=== PATIENT | female | born 1945 | race Caucasian/White ===

== ENCOUNTER → 2025-04-29 15:14 | Outpatient (REF) | payer BC, SELFPAY | LOC: RAD 15:14 | PROVIDERS: ATTENDING PHYSICIAN Family Medicine | DX: R74.01 Elevation of levels of liver transaminase levels (principal); R19.00 Intra-abdominal and pelvic swelling, mass and lump, unspecified site; C50.912 Malignant neoplasm of unspecified site of left female breast; R63.4 Abnormal weight loss; R19.4 Change in bowel habit | CPT/HCPCS: 74177; Q9967 ==

== ENCOUNTER → 2025-05-24 16:18 | Outpatient (REF) | payer BC, OTHER, SELFPAY | LOC: RCS 16:18 | PROVIDERS: ATTENDING PHYSICIAN Internal Medicine; FAMILY PHYSICIAN Family Medicine | DX: C78.7 Secondary malignant neoplasm of liver and intrahepatic bile duct (principal); C79.51 Secondary malignant neoplasm of bone; C18.7 Malignant neoplasm of sigmoid colon; C50.112 Malignant neoplasm of central portion of left female breast; Z17.0 Estrogen receptor positive status [ER+]; R63.4 Abnormal weight loss; R79.89 Other specified abnormal findings of blood chemistry | CPT/HCPCS: 93005 ==

== ENCOUNTER 2025-05-30 11:57 | Emergency (ER) | payer BC, OTHER, SELFPAY ==
[2025-05-30 12:03] VITALS: BP 119/75
[2025-05-30 12:07] VITALS: BP 119/75
--- NOTE | 2025-05-30 12:15 | ED.GENMED ---
History of Present Illness
General
Chief Complaint: Heart Rate Problem
Time Seen by Provider: 05/30/25 12:14
History of Present Illness
History of Present Illness:
FOCUSED PAST MEDICAL HISTORY
- Liver cancer diagnosed 2024
REVIEW OF OLD RECORDS
- I reviewed some records from [place] [facility] on the patient's records that she brought in and on the daughters device
Note:
CHIEF COMPLAINT(S)
High heart rate and general weakness.
HISTORY OF PRESENT ILLNESS
The patient is a 79-year-old female with a recent diagnosis of liver cancer, who was previously treated for breast cancer with ER-positive readings. The patient has been receiving care at [facility]. She presented to the ER with an
extremely high heart rate noted by a healthcare nurse at home, who measured a heart rate of 150 beats per minute. The nurse advised calling 911. The patient reported significant weakness and appears somewhat dehydrated, having consumed only a small
amount of water in the last 24 hours, without any food intake.
The patients medical history includes a recent hospitalization at [facility], from which she was discharged on March 28 after receiving IV fluids for dehydration and a blood transfusion to address a low hemoglobin level, which improved to 10.1
g/dL. The total bilirubin level at discharge was reported to be 4 mg/dL. She has an upcoming appointment with her oncologist, Dr. Aquino, and plans on continuing care with local providers rather than returning to [facility] for future hospital visits
unless necessary.
PAST MEDICAL AND SURGICAL HISTORY
The patient has a history of breast cancer treated with lumpectomy at [facility].
EXTERNAL RECORDS REVIEWED
The patient has discharge paperwork from a recent hospital stay at [facility], and she has screenshots of lab results from March 28. These records indicate improved hemoglobin levels post-transfusion.
CHRONIC MEDICAL CONDITIONS SIGNIFICANTLY AFFECTING CARE
- Liver cancer
- Breast cancer (ER-positive)
SOCIAL HISTORY
The patient reports previous medical procedures related to breast cancer treatment and expresses a preference for continuing oncology care locally rather than at [facility] in the future.
REVIEW OF SYSTEMS
- Cardiovascular: Elevated heart rate found by visiting nurse but patient does not necessarily feel palpitations
- Gastrointestinal: Dehydration, limited oral intake
- General: Weakness
PHYSICAL EXAM
General: Appears generally weak and debilitated, cachectic
Skin: Dry oral mucosa
Cardiovascular: Heart rate currently at 90; port anterior chest wall, regular rhythm
Gastrointestinal: Soft abdomen
Extremities: No edema
PROBLEM LIST
Acute:
- Elevated heart rate
- Dehydration
Chronic:
- Liver cancer
- Breast cancer (ER-positive)
PLAN
- Administer IV fluids to address dehydration.
- Gather more comprehensive lab data, if possible, from the patients medical portal.
- Monitor and adjust treatment based on patients response.
DIFFERENTIAL DIAGNOSIS
The Differential Diagnosis includes, in no particular order and is not limited to:
1. Dehydration
2. Anemia
3. Cardiac arrhythmia
4. Infection
5. Hyperthyroidism
6. Electrolyte imbalance
7. Medication side effects
8. Anxiety
9. Pulmonary embolism
10. Acute coronary syndrome
EKG
- Sinus 93, left axis deviation, poor R wave progression
LABS
- White count 9.3, hemoglobin 10.2, bicarb 20, total bili 4.4, AST 371, alk phos 691, TSH 6.85�similar numbers in comparison to review of records from [facility]
UPDATE
-SUMMARY OF ENCOUNTER
The patient, a 79-year-old female with a recent diagnosis of liver cancer, presented to the emergency department with symptoms of a high heart rate (found by visiting nurse of around 150) and general weakness. The patient had previously been
hospitalized at [facility] where she received IV fluids and a blood transfusion for dehydration and low hemoglobin. She did not like the care there. Upon evaluation, it was determined that her weakness and elevated heart rate were
likely related to dehydration and poor oral intake. IV fluids were administered in the emergency department, and she reported some improvement in symptoms.
DISPOSITION
The patient is to be discharged with instructions to follow up with her oncologist at [facility] but plans to receive more of her care locally at [place] going forward.
ASSESSMENT
The patients elevated heart rate and weakness were likely due to dehydration and reduced oral intake, secondary to her recent hospitalization and ongoing medical conditions, including liver cancer and history of breast cancer.
PLAN
Continue with hydration and monitor oral intake. Follow up with oncology at [facility], with consideration for more frequent local care at [facility].
INDEPENDENT REVIEW OF LABS AND INTERPRETATION OF TESTS
My independent review of recent labs from [facility] indicates stable hemoglobin levels since the last transfusion.
FOLLOW-UP INSTRUCTIONS
The patient is instructed to follow up with her oncologist at [facility] and consider scheduling future appointments with local providers at [place].
MEDICAL DECISION MAKING
Number and Complexity of Problems Addressed: Chronic conditions affecting care include liver cancer and a history of ER-positive breast cancer. The differential diagnosis includes dehydration, anemia, cardiac arrhythmia, and electrolyte imbalance.
Data:
Category 1: External records reviewed include recent discharge paperwork and lab results from [facility].
Category 3: Care plans discussed with oncology for follow-up and continuation of treatment.
Risk: Consideration of Admission/Observation: Escalation of care including admission/observation was considered given the complexity and risk of the patients presenting complaint and underlying comorbidities. However, ultimately I feel the patient
is safe for outpatient management with close follow-up. Reasoning: Work-up reassuring, symptoms well-controlled upon reevaluation, vitals stable, patient agreeable with discharge, and reliable for follow-up.
DIAGNOSIS
1. Dehydration (ICD-10: E86.0)
2. Liver cancer (ICD-10: C22.9)
3. History of breast cancer (ER-positive) (ICD-10: Z85.3)
Past History
Past History
ED Past Medical History: Arrthythmia (PVCs), Cancer and Other (Arthritis)
ED Past Surgical History: Orthopedic; Negative Cardiac
Social History
Tobacco: Non-smoker
Alcohol: Occasional
Drug: None
Personal:
Living: with family
Employment: Employed
Family History
Family History: Other (Noncontributory)
Phy Exam
Physical Exam
Physical Exam:
See HPI
Course
Orders/Labs/Results
Orders:
Orders
05/30/25 11:58
Electrocardiogram (*1) Urgent
Reason for Study: Tachycardia
EKG- Treatment ONCE
05/30/25 12:13
Complete Blood Count/With Diff Urgent
Comprehensive Metabolic Panel Urgent
TSH Urgent
05/30/25 12:28
0.9% Sodium Chloride 1000 ml [Nss] 1,000 ml IV BOLUS
Abnormal Lab Results
05/30/25
12:13
RBC 3.06 L 10^6/uL
(4.20-5.40)
Hgb 10.2 L g/dL
(12.0-16.0)
Hct 32.9 L %
(37.0-47.0)
MCV 107.5 H fL
(81.0-99.0)
MCH 33.3 H pg
(27.0-31.0)
MCHC 31.0 L g/dL
(33.0-37.0)
RDW 20.7 H %
(11.5-14.5)
Plt Count 108 L 10^3/uL
(130-400)
Abs Immat Gran (auto) 0.4 H 10^3/uL
(0-0.05)
Absolute Monos (auto) 0.7 H 10^3/uL
(0.1-0.6)
Immature Gran % 4.3 H %
(0-0.5)
Lymphocytes % 19.5 L %
(20.5-51.1)
Sodium 132 L mmol/L
(135-145)
Carbon Dioxide 20 L mmol/L
(22-30)
BUN 23 H mg/dl
(7-17)
Glucose 130 H mg/dl
(70-99)
Total Bilirubin 4.4 H mg/dl
(0.2-1.3)
AST 371 H U/L
(14-36)
ALT 50 H U/L
(0-35)
Alkaline Phosphatase 691 H U/L
(38-126)
Albumin 2.9 L g/dl
(3.5-5.0)
TSH 6.85 H uIU/ml
(0.47-4.68)
05/30/25 12:13
05/30/25 12:13
Vital Signs
Initial and Last Documented VS:
Initial Vital Signs
Pulse Resp
94 17
05/30/25 12:02 05/30/25 12:02
Last Documented Vital Signs
Temp Pulse Resp BP Pulse Ox
36.6 C 78 22 127/72 96
05/30/25 12:03 05/30/25 14:00 05/30/25 14:00 05/30/25 14:00 05/30/25 14:00
*Pulse Oximetry
SaO2: 98
Oxygen Mode of Delivery: Room air
Patient hypoxic: no
*Critical Care Note
Total Time (30-74mins, 75-104mins- exclusive of procedures): Not Applicable
ED Attending Note
-
Portions of this chart may have been created with voice recognition software.� Occasional wrong word or��sound alike� substitutions may have occurred due to the inherent limitations of voice recognition software.
Discharge Plan
Departure
Patient Disposition: Home (Routine Discharge)
Date of Disposition: 05/30/25
Time of Disposition: 13:30
Patient with high blood pressure during this ER visit?: No
Discharge Problem:
Tachycardia
Instructions: Dehydration in adults - ED (DC)
Prescriptions:
New
zolpidem [Ambien] 5 mg tablet
5 mg PO HS PRN (Reason: insomnia) Qty: 7 0RF
No Action
Metoprolol
50 mg PO DAILY
naproxen [Naprosyn] 500 mg tablet
500 mg PO BID PRN (Reason: pain) Qty: 14 0RF
Referrals:
Fatuma Guaman MD [Family Provider, Family Practice]
Activity Restrictions/Additional Instructions:
Your EKG showed a normal sinus rhythm with a heart rate of 93. Your hemoglobin today is 10.2, your total bili is 4.4, and alkaline phosphatase is 691. We gave you a liter of fluid. Return here if worse or other concerns. I sent a prescription
for Ambien to your pharmacy.
Interventions
Interventions:
*Risk Screen - Suicide Last Done: 05/30/25 12:03
*General Assessment Last Done: 05/30/25 12:03
*Neglect/Abuse Screening Last Done: 05/30/25 12:03
*ED- Fall Risk Assessment Last Done: 05/30/25 13:32
*Nursing Disposition Last Done: 05/30/25 14:04
ED- Cardiac Assessment Last Done: 05/30/25 13:18
ED- Pulmonary Assessment Last Done: 05/30/25 13:18
Discharge Date and Time
Discharge Date/Time: 05/30/25 14:30
Print Language: CITIZEN OF [place]
[2025-05-30 12:23] LABS: Hematocrit 32.9 % (37.0-47.0); Hemoglobin 10.2 g/dL (12.0-16.0); Mean Corp Hgb Conc. 31.0 g/dL (33.0-37.0); Mean Corpuscular Volume 107.5 fL (81.0-99.0); Nucleated Red Blood Cells % 4.5 %; Platelet Count 108 10^3/uL (130-400); Red Cell Dist. Width 20.7 % (11.5-14.5)
[2025-05-30 12:47] VITALS: BMI 18.8
[2025-05-30] MEDS: NSS 1000 IV (12:48)
[2025-05-30 12:54] LABS: ALT (SGPT) 50 U/L (0-35); AST (SGOT) 371 U/L (14-36); Albumin 2.9 g/dl (3.5-5.0); Alkaline Phosphatase 691 U/L (38-126); Blood Urea Nitrogen 23 mg/dl (7-17); Calcium 8.4 mg/dl (8.4-10.2); Carbon Dioxide 20 mmol/L (22-30); Chloride 106 mmol/L (98-107); Estimated Creatinine Clearance 42 ml/min; Glucose 130 mg/dl (70-99); Potassium 4.2 mmol/L (3.5-5.1); Sodium 132 mmol/L (135-145); Total Protein 6.7 g/dl (6.3-8.2); eGFR > 60.00
[2025-05-30 13:00] VITALS: BP 125/84
[2025-05-30 13:14] LABS: TSH 6.85 uIU/ml (0.47-4.68)
[2025-05-30 14:00] VITALS: BP 127/72
== END 2025-05-30 14:30 | disposition home or self-care (01) ==
LOC: EMR 11:57
PROVIDERS: EMERGENCY PHYSICIAN Emergency Medicine; FAMILY PHYSICIAN Family Medicine
DX: R00.0 Tachycardia, unspecified (principal); E86.0 Dehydration; C22.9 Malignant neoplasm of liver, not specified as primary or secondary; M19.90 Unspecified osteoarthritis, unspecified site; Z85.3 Personal history of malignant neoplasm of breast
CPT/HCPCS: 99284; 96360; 80053; 84443; 85025; 93005